=== PATIENT | male | born 1965 | race Caucasian/White ===

== ENCOUNTER 2023-06-01 22:09 | Emergency (ER) | payer SELFPAY ==
[~2023-06-01] VITALS: Ht 190.5 cm; Wt 104.5 kg
[2023-06-01 22:45] LABS: BASOPHILS % (AUTO) 0 % (0-10); EOSINOPHILS % (AUTO) 0 % (0-10); HEMATOCRIT 50 % (40-54); HEMOGLOBIN 17.2 g/dL (13.3-17.7); LYMPHOCYTES # (AUTO) 0.8 10^3/uL (1.0-4.0); LYMPHOCYTES % (AUTO) 4 % (12-44); MEAN CORPUSCULAR HEMOGLOBIN 29 pg (25-34); MEAN CORPUSCULAR HGB CONC 35 g/dL (32-36); MEAN CORPUSCULAR VOLUME 84 fL (80-99); MONOCYTES # (AUTO) 0.6 10^3/uL (0.0-1.0); MONOCYTES % (AUTO) 4 % (0-12); NEUTROPHILS # (AUTO) 15.9 10^3/uL (1.8-7.8); NEUTROPHILS % (AUTO) 91 % (42-75); PLATELET COUNT 216 10^3/uL (130-400); WHITE BLOOD COUNT 17.4 10^3/uL (4.3-11.0)
[2023-06-01] MEDS ORDERED: LIDOCAINE UROJET 2% GEL 10 ML PKG TOP ONE (22:45)
--- NOTE | 2023-06-01 22:52 | ED GU-Male ---
General Chief Complaint: - Reproductive Stated Complaint: LOWER ABD PAIN Nursing Triage Note: Patient c/o nausea, diarrhea, lower Abd. pain, and urinary retention. Patient states he has not been able to urinate since 1600 today. Patient states he was having diarrhea and lower Abd. pain. Patient denies any blood in his stool or Hx. of colitis or Diverticulitis. Patient denies any Hx. of urinary retention. Patient c/o pain to lower Abd. with palpation. Source: patient Exam Limitations: no limitations History of Present Illness Date Seen by Provider: Jun 01, 2023 Time Seen by Provider: 22:25 Initial Comments Patient is a 58-year-old male who presents to the emergency department with a chief complaint of inability to urinate since about 4:00 this afternoon. He states last night he was up multiple times during the night with diarrhea. He did take a couple of doses of Imodium earlier in the day. He states since he has been unable to urinate he has had increasing pressure and urgency and pain. He states it is "excruciating". No fevers or chills. No nausea or vomiting. He denies blood in his stool. He states he had a can of [employer] sausages for lunch today. He works as a bulk truck driver. He has been on blood pressure medications in the past and has been controlling his blood pressure more "holistically". He weaned himself off of blood pressure medications in July of last year. He states normally he is in the 120s over 80s. He is quite hypertensive at presentation this evening at 224/142. He denies headache, vision changes, unilateral weakness numbness or tingling. No problems with balance or coordination. He attributes his crazy high blood pressure to the pain in his abdomen from inability to urinate. He did have some chills and sweats earlier in the day. Unknown if he has any prostate issues. h/o diverticulitis Timing/Duration: this afternoon Severity/Quality: severe, aching, cramping Location: suprapubic Radiation: none Activities at Onset: none Prior Genitourinary Problems: none Sexual Kaylor History: not active Associated Symptoms: abdominal pain, other (diarrhea) Allergies and Home Medications Allergies Coded Allergies: No Known Drug Allergies (Unverified , 06/01/23) Patient Home Medication List Home Medication List Reviewed: Yes Review of Systems Review of Systems Constitutional: see HPI EENTM: no symptoms reported Respiratory: no symptoms reported Cardiovascular: no symptoms reported Gastrointestinal: abdominal pain Genitourinary: urgency Musculoskeletal: no symptoms reported Skin: no symptoms reported Psychiatric/Neurological: No Symptoms Reported Past Prtombz-Sbrght-Lginof Hx Patient Social History Tobacco Use?: No Use of E-Cig and/or Vaping dev: No Substance use?: No Alcohol Use?: No Immunizations Up To Date Influenza Vaccine Up-to-Date: No; Not Current Past Medical History Surgery/Hospitalization HX: HTN Physical Exam Vital Signs Vital Signs - First Documented 06/01/23 22:16 Temp 35.7 Pulse 102 Resp 14 B/P (MAP) 217/133 (161) O2 Delivery Room Air Capillary Refill : Height, Weight, BMI Height: '" Weight: lbs. oz. kg; 28.00 BMI Method: General Appearance: WD/WN, mild distress HEENT: PERRL/EOMI Cardiovascular: regular rate, rhythm Respiratory: lungs clear, normal breath sounds, no respiratory distress, no accessory muscle use Gastrointestinal: no pulsatile mass, distended, guarding, tenderness Extremities: normal range of motion, non-tender, normal inspection, no calf tenderness, pedal edema (trace) Neurologic/Psychiatric: no motor/sensory deficits, alert, normal mood/affect, oriented x 3 Skin: normal color, warm/dry Progress/Results/Core Measures Suspected Sepsis SIRS Temperature: Pulse: 102 Respiratory Rate: 14 Laboratory Tests 06/01/23 22:23: White Blood Count 17.4H Blood Pressure 217 /133 Mean: 161 Laboratory Tests 06/01/23 22:23: Creatinine 1.42H, Platelet Count 216, Total Bilirubin 0.8 Results/Orders Lab Results Laboratory Tests Test 06/01/23 22:23 06/01/23 22:52 Range/Units White Blood Count 17.4 H 4.3-11.0 10^3/uL Red Blood Count 5.91 H 4.30-5.52 10^6/uL Hemoglobin 17.2 13.3-17.7 g/dL Hematocrit 50 40-54 % Mean Corpuscular Volume 84 80-99 fL Mean Corpuscular Hemoglobin 29 25-34 pg Mean Corpuscular Hemoglobin Concent 35 32-36 g/dL Red Cell Distribution Width 12.7 10.0-14.5 % Platelet Count 216 130-400 10^3/uL Mean Platelet Volume 10.0 9.0-12.2 fL Immature Granulocyte % (Auto) 1 % Neutrophils (%) (Auto) 91 H 42-75 % Lymphocytes (%) (Auto) 4 L 12-44 % Monocytes (%) (Auto) 4 0-12 % Eosinophils (%) (Auto) 0 0-10 % Basophils (%) (Auto) 0 0-10 % Neutrophils # (Auto) 15.9 H 1.8-7.8 10^3/uL Lymphocytes # (Auto) 0.8 L 1.0-4.0 10^3/uL Monocytes # (Auto) 0.6 0.0-1.0 10^3/uL Eosinophils # (Auto) 0.0 0.0-0.3 10^3/uL Basophils # (Auto) 0.0 0.0-0.1 10^3/uL Immature Granulocyte # (Auto) 0.1 0.0-0.1 10^3/uL Neutrophils % (Manual) 86 % Lymphocytes % (Manual) 6 % Monocytes % (Manual) 5 % Band Neutrophils 3 % Platelet Estimate ADEQUATE Blood Morphology Comment NORMAL Sodium Level 140 135-145 MMOL/L Potassium Level 3.7 3.6-5.0 MMOL/L Chloride Level 104 98-107 MMOL/L Carbon Dioxide Level 24 21-32 MMOL/L Anion Gap 12 5-14 MMOL/L Blood Urea Nitrogen 12 7-18 MG/DL Creatinine 1.42 H 0.60-1.30 MG/DL Estimat Glomerular Filtration Rate 57 BUN/Creatinine Ratio 8 Glucose Level 156 H 70-105 MG/DL Calcium Level 9.5 8.5-10.1 MG/DL Corrected Calcium 8.5-10.1 MG/DL Total Bilirubin 0.8 0.1-1.0 MG/DL Aspartate Amino Transf (AST/SGOT) 21 5-34 U/L Alanine Aminotransferase (ALT/SGPT) 28 0-55 U/L Alkaline Phosphatase 75 40-136 U/L Total Protein 7.0 6.4-8.2 GM/DL Albumin 4.6 H 3.2-4.5 GM/DL Urine Color YELLOW Urine Clarity CLEAR Urine pH 5.5 5-9 Urine Specific [place] 1.010 L 1.016-1.022 Urine Protein 2+ H NEGATIVE Urine Glucose (UA) NEGATIVE NEGATIVE Urine Ketones NEGATIVE NEGATIVE Urine Nitrite NEGATIVE NEGATIVE Urine Bilirubin NEGATIVE NEGATIVE Urine Urobilinogen 0.2 < = 1.0 MG/DL Urine Leukocyte Esterase NEGATIVE NEGATIVE Urine RBC (Auto) 1+ H NEGATIVE Urine RBC 2-5 H /HPF Urine WBC NONE /HPF Urine Squamous Epithelial Cells NONE /HPF Urine Crystals NONE /LPF Urine Calcium Oxalate Crystals /LPF Urine Bacteria NEGATIVE /HPF Urine Casts NONE /LPF Urine Mucus NEGATIVE /LPF Urine Culture Indicated NO My Orders Orders - AVINASH CHOI MD Ed Iv/Invasive Line Start (06/01/23 22:35) Cbc With Automated Diff (06/01/23 22:35) Comprehensive Metabolic Panel (06/01/23 22:35) Ua Culture If Indicated (06/01/23 22:35) Bladder Scan (06/01/23 22:35) Uriostegui Cath (06/01/23 22:43) Lidocaine 2% (Urojet) (Xylocaine Urojet) (06/01/23 22:45) Manual Differential (06/01/23 22:23) Ns Iv 1000 Ml (Sodium Chloride 0.9%) (06/01/23 23:23) Ct Abdomen/Pelvis W (06/01/23 23:23) Iohexol Injection (Omnipaque 350 Mg/Ml 1 (06/02/23 00:45) Received Contrast (Hold Metformin- Contr (06/02/23 00:45) Ns (Ivpb) 100 Ml (Sodium Chloride 0.9% 1 (06/02/23 00:45) Medications Given in ED Current Medications Medications Dose Ordered Sig/Amy Route Start Time Stop Time Status Last Admin Dose Admin Iohexol 100 ml ONCE ONCE IV 06/02/23 00:45 06/02/23 00:46 DC 06/02/23 00:41 80 ML Lidocaine HCl 10 ml ONCE ONCE TOP 06/01/23 22:45 06/01/23 22:46 DC 06/01/23 22:46 10 ML Sodium Chloride 100 ml ONCE ONCE IV 06/02/23 00:45 06/02/23 00:46 DC 06/02/23 00:41 80 ML Vital Signs/I&O 06/01/23 22:16 Temp 35.7 Pulse 102 Resp 14 B/P (MAP) 217/133 (161) O2 Delivery Room Air Capillary Refill : Blood Pressure Mean: 161 Progress Note : Time: 00:55 Progress Note Patient seen and evaluated by me. Evaluation today includes physical exam, CBC, Chem-12, urinalysis, CT scan of the abdomen and pelvis with IV contrast. Pertinent physical exam findings well-developed well-nourished male in mild distress due to abdominal distention/discomfort and urinary retention. Tender b margarito. Normal bowel sounds. Heart rate is regular, lungs are clear. He is quite hypertensive at 224 systolic. No lower extremity edema. No focal neurologic deficits. Differential diagnosis based on history and physical exam hypertensive urgency versus emergency, acute urinary retention secondary to infection, acute renal failure Labs independently reviewed and interpreted by me. His CBC shows an elevated white blood cell count of 17.4 with 91% segmented neutrophils. His chemistry is remarkable only for a BUN of 12 creatinine of 1.42. His glucose is 156. Urinalysis reveals microscopic hematuria without any evidence of infection. His CT scan of the abdomen pelvis is generally unremarkable. Patient is treated with a Uriostegui catheter, he had approximately 1300 mL after placement. He had significant improvement in his pain. His blood pressure is down to 180/115. He is confident that his pressure will continue to come down throughout the evening. He declines any medication at this time. I recommended that we leave the Uriostegui catheter in place due to the urinary retention and he should follow-up with Dr. Palma later this week. He is comfortable with this plan of care. He has no concerning findings for acute renal failure, stroke, infection related to his kidneys. Suspect that his leukocytosis is secondary to the diarrheal illness he has had in the last 24 hours. I have advised that should he develop any new, concerning symptoms he return to the emergency department. He should monitor for fever. He verbalized understanding of the discharge instructions and is comfortable with the plan of care. All questions are sought and answered. Diagnostic Imaging Diagonstic Imaging: CT Comments CT abd and Pelvis with IV contrast - per Stat Rad - Bladder thick walled, compatible with cystitis and bilateral perinephric stranding without evidence of hydronephrosis, ureteral stone or calculus; simple renal cyst on the left 7.9cm; stomach and bowel unremarkable Departure Impression Primary Impression: Acute urinary retention Additional Impressions: diarrheal illness Asymptomatic hypertensive urgency Disposition: 01 HOME, SELF-CARE Condition: Improved Departure-Patient Inst. Decision time for Depature: 00:59 Referrals: FARHAD PALMA MD (PCP/Family) Primary Care Physician Patient Instructions: Urinary Retention (DC), High blood pressure in adults Add. Discharge Instructions: Drink plenty of fluids to stay well hydrated over the next [address] Palma's office later today for a follow up appointment regarding the urinary retention and catheter for or Wednesday. Monitor your blood pressure twice a day over the next 3/4 days and keep a log of the numbers for your follow up with Dr Palma. If you have any new, emergent or concerning symptoms - please return to the Emergency Department for re-evaluation. Work/School Note: Work Release Form Date Seen in the Emergency Department: Jun 01, 2023 Return to Work: Jun 04, 2023 Copy Copies To 1: FARHAD PALMA MD, KATHRYN M MD Jun 01, 2023 22:52
[2023-06-01 22:55] LABS: ALANINE AMINOTRANSFERASE 28 U/L (0-55); ALBUMIN 4.6 GM/DL (3.2-4.5); ALKALINE PHOSPHATASE 75 U/L (40-136); BILIRUBIN,TOTAL 0.8 MG/DL (0.1-1.0); BUN/CREATININE RATIO 8; CALCIUM 9.5 MG/DL (8.5-10.1); CARBON DIOXIDE 24 MMOL/L (21-32); CHLORIDE 104 MMOL/L (98-107); CREATININE SERUM 1.42 MG/DL (0.60-1.30); GFR ESTIMATED 57; GLUCOSE 156 MG/DL (70-105); POTASSIUM 3.7 MMOL/L (3.6-5.0); SODIUM 140 MMOL/L (135-145)
[2023-06-01 23:06] LABS: CLARITY,URINE CLEAR; COLOR,URINE YELLOW; PH,URINE 5.5 (5-9)
[2023-06-01 23:07] LABS: BACTERIA,URINE NEGATIVE /HPF; BILIRUBIN,URINE NEGATIVE (NEGATIVE); GLUCOSE, URINE (UA) NEGATIVE (NEGATIVE); KETONES,URINE NEGATIVE (NEGATIVE); LEUKOCYTE ESTERASE ,URINE NEGATIVE (NEGATIVE); NITRITE,URINE NEGATIVE (NEGATIVE); PROTEIN,URINE 2+ (NEGATIVE)
[2023-06-01] MEDS ORDERED: NS IV 1000 ML 1,000 ML IV STA (23:23)
[2023-06-01 23:30] LABS: BAND NEUTROPHILS 3 %; LYMPHOCYTES % (MANUAL) 6 %; MONOCYTES % (MANUAL) 5 %; NEUTROPHILS % (MANUAL) 86 %; PLATELET ESTIMATE ADEQUATE; RBC MORPH NORMAL
[2023-06-02] MEDS ORDERED: IOHEXOL 350 MG/ML 100 ML (OMNIPAQUE 350) VIAL IV ONE (00:45)
[2023-06-02] MEDS ORDERED: NS 100 ML (IVPB) BAG IV ONE (00:45)
[2023-06-02] MEDS ORDERED: HOLD METFORMIN - RECEIVED CONTRAST 20 ML VIAL IV SCH (00:45)
[2023-06-02 01:19] VITALS: BP 171/99
--- NOTE | 2023-06-02 06:58 | Diagnostic Imaging Report ---
PROCEDURE: CT abdomen and pelvis with contrast. TECHNIQUE: Multiple contiguous axial images were obtained through the abdomen and pelvis after administration of intravenous contrast. Auto Exposure Controls were utilized during the CT exam to meet ALARA standards for radiation dose reduction. All CT scans use one or more of the following dose optimizing techniques: automated exposure control, MA and/or KvP adjustment based on patient size and exam type or iterative reconstruction. INDICATION: Diarrhea, low abdominal pain, urinary retention. EXAMINATION: CT abdomen and pelvis with contrast 06/01/2023 FINDINGS: Lung bases are clear. Multiple subcentimeter hypodensities noted in the dome of the liver too small for characterization. Gallbladder and spleen unremarkable. There is an approximately 1 cm hypodensity in the right adrenal gland with the left adrenal gland unremarkable. Pancreas is normal. Within the right kidney, minimal prominence of the renal collecting system is noted along its entire course with fat stranding along the entire ureter. No distal obstructive stones appreciated. Similar findings seen along the course of the left ureter with again no distal obstructive stones. Mild perinephric fluid seen about the left kidney more so than on the right. There are cystic lesions in both kidneys, some are too small to characterize. Largest lesion on the left measures 8.1 cm and is consistent with a simple cyst. The urinary bladder demonstrates marked wall thickening some of which could be due to underdistention. Uriostegui catheter noted with air in the bladder possibly iatrogenic although cystitis is likely given fat stranding anterior to the bladder. There is no significant free fluid. No free air. There are findings of minimal constipation. Appendix normal. There is no acute osseous abnormality. IMPRESSION: 1. Findings suspicious for bilateral pyelitis with very early pyelonephritis not excluded although nephrograms are fairly normal bilaterally at this time. No obstructive stones appreciated on either side. 2. Simple cysts in the kidneys although some are too small for characterization. 3. Findings suggestive of cystitis. Otherwise incidental findings as above. Pertinent findings agree with the preliminary report. Dictated on workstation # [id number]
== END 2023-06-02 01:19 | disposition home or self-care (01) ==
LOC: ER 22:12
DX: R33.9 Retention of urine, unspecified (principal); R19.7 Diarrhea, unspecified; I16.0 Hypertensive urgency; N28.1 Cyst of kidney, acquired; D72.829 Elevated white blood cell count, unspecified; Z87.19 Personal history of other diseases of the digestive system; Z28.310 Unvaccinated for COVID-19
CPT/HCPCS: 36415; 51702; 74177; 80053; 81000; 85007; 85027

== ENCOUNTER → 2023-06-07 | Outpatient (CLI) | payer SELFPAY ==
[~2023-06-07] VITALS: Ht 190.5 cm; Wt 104.5 kg
[2023-06-07 16:10] VITALS: BP 152/97
== END ==
LOC: SDC 16:20
PROVIDERS: ATTEND Internal Medicine
DX: Z01.89 Encounter for other specified special examinations (principal)
CPT/HCPCS: 99211

== ENCOUNTER 2023-09-29 05:57 | Outpatient (CLI) | payer OTHER ==
[~2023-09-29] VITALS: Ht 188 cm; Wt 104.1 kg
[2023-09-29] MEDS ORDERED: ROSU20TA73 PO (14:27)
[2023-09-29] MEDS ORDERED: FINA5TAB6 PO (14:27)
[2023-09-29] MEDS ORDERED: AMLO-251 PO (14:27)
[2023-09-29] MEDS ORDERED: TADA5TAB4 PO (14:27)
[2023-09-29] MEDS ORDERED: LISI20TA26 PO (14:27)
[2023-09-29] MEDS ORDERED: LEVO-55 PO (14:27)
[2023-09-29] MEDS ORDERED: TMSL.4C PO (14:27)
== END 2023-09-29 14:31 | disposition home or self-care (01) ==
LOC: PREOP 05:57
PROVIDERS: ATTEND Internal Medicine
DX: Z01.818 Encounter for other preprocedural examination (principal)